=== PATIENT | female | born 1945 | race Caucasian/White ===

== ENCOUNTER 2018-02-12 08:45 | Day surgery (SDC) | payer OTHER ==
[2018-02-12] MEDS ORDERED: PROPOFOL 60 ML (09:50)
[2018-02-12] MEDS ORDERED: LIDOCAINE 2% (SDV) 5 ML INJ (09:50)
== END 2018-02-12 16:56 | disposition home or self-care (01) ==
LOC: GIL 08:45
DX: K92.1 Melena (principal); K64.8 Other hemorrhoids; K64.4 Residual hemorrhoidal skin tags; E78.5 Hyperlipidemia, unspecified; E11.9 Type 2 diabetes mellitus without complications; I10 Essential (primary) hypertension; E03.9 Hypothyroidism, unspecified; E66.9 Obesity, unspecified; Z68.39 Body mass index [BMI] 39.0-39.9, adult
CPT/HCPCS: 45380; 88305